=== PATIENT | female | born 1935 | race Caucasian/White ===

== ENCOUNTER 2017-12-15 12:48 | Inpatient (IN) ==
--- NOTE | 2017-12-15 13:41 | Internal Med History&Physical ---
Date of Encounter: 12/15/17 Time of Encounter: 13:37 Assessment and Plan (1) S/P colectomy Current visit: Yes Status: Acute Status post total colectomy proximately 30 days postop. Staple line surgical site appears healthy and well healed. Bowel sounds are positive. Ileostomy to the right lower quadrant with healthy stoma and liquid brown stool received. Abdomen is soft and nontender. Patient is been tolerating advancing diet, but has had a few episodes of nausea. We will continue with current plan of care. (2) CAD (coronary artery disease) Current visit: Yes Status: Chronic No acute issues. Patient denies any chest discomforts or palpitations during her hospital stay. We will continue on current medications. Qualifiers: Coronary Disease-Associated Artery/Lesion type: [place] artery [place] vs. transplanted heart: [place] heart Associated angina: angina presence unspecified Qualified Code(s): I25.10 - Atherosclerotic heart disease of [place] coronary artery without angina pectoris (3) HTN (hypertension) Current visit: Yes Status: Chronic Vital signs stable. We will continue with current medications. Qualifiers: Hypertension type: essential hypertension Qualified Code(s): I10 - Essential (primary) hypertension Internal Medicine - H&P: HPI Admitted From: Intrahospital Transfer Plans for Post Hospital Care: Home History of present illness: Ms. Ruelas is a 82 year old female with a history of atrial fibrillation, colon and rectal cancer, breast cancer, cardiomyopathy, CHF, CAD and hypertension, previous myocardial infarction in May 2014 with stent 1, and thyroid disease presented to the ED with chief complaint of abdominal pain and GI bleeding. Patient was found to have colon CA resulting in s/p subtotal abdominal colectomy with ileostomy, lysis adhesions for 2 hours, and repair of 3 enterotomies (unavoidable in the areas of radiation) with Dr. Praveen [place]. The patient tolerated procedure well. The pathology of the colon revealed adenocarcinoma, invading pericolic fat, node-Negative. During hospitalization, the patient had leukocytosis with elevated white blood count up to 13.8 and a low-grade fever with a temperature up to 100.2 Fahrenheit. Chest and abdomen x- ray was ordered to further evaluate. The report read stable small left pleural effusion with associated atelectasis or consolidation. Patient was then started on IV antibiotics for possible pneumonia. Patient currently denies any discomforts or dyspnea at this time. Denies any productive cough. Afebrile. Patient will continue on Levaquin for 6 more days. Pt c/o slight pain to her buttocks, which shows a shearing type skin breakdown, possible Stage 2 breakdown. State that she has been progressing with her diet and has had a few episodes of nausea but no vomiting. Patient states that she is ambulated with assistance at the Hospital but has felt very weak in her legs Past Med Surg Social Fam HX - Past Medical History Medical history: arthritis, atrial fibrillation, cancer, cardiomyopathy, CHF, coronary artery disease, GERD, hypertension, myocardial infarction, thyroid disease, other (Patient has had 3 types of cancer to her breast, colon and rectum) Psychiatric history: no psych history - Past Surgical History Surgical History: angioplasty/stent, appendectomy, breast surgery, cancer surgery, cholecystectomy, colostomy, hysterectomy - Social History Smoking Status: Former smoker Smokeless Tobacco Status: No Alcohol use: none Drug use: none - Family History Brother Family Member Ethnicity: Non- Living Status: Hx Family Cardiac Disorders: Yes (VT, AICD) Sister Adopted: No Family Member Ethnicity: Non- Living Status: Hx Family Cardiac Disorders: Yes (mother CHF) Hx Family Respiratory Disorders: No Hx Family Cancer: No Hx Family GI Disorders: No Hx Family Endocrine Disorder: No Hx Family Neuromuscular Disorders: No Hx Family Neurologic Disorders: No Hx Family HEENT Disorders: No Hx Family Autoimmune Disorders: No Mother Family Member Ethnicity: Non- Living Status: Hx Family Cardiac Disorders: Yes (CHF) Hx Family Endocrine Disorder: Yes (Thyroid disease) Father Family Member Ethnicity: Non- Living Status: Hx Family Cardiac Disorders: Yes (CAD, Strokes) Internal Medicine - H&P: Meds Cholecalciferol (Vitamin D3) [Vitamin D3] 1,000 unit PO DAILY 05/22/15 [History] Cinnamon Bark [Cinnamon] 1,000 mg PO DAILY 05/22/15 [History] Cyanocobalamin (Vitamin B-12) [Vitamin B-12] 100 mcg PO DAILY 05/22/15 [History] Flaxseed Oil 1,000 mg PO BID 05/22/15 [History] Garlic 2,000 mg PO DAILY 05/22/15 [History] Lisinopril [Zestril] 2.5 mg PO DAILY 05/22/15 [History] Levothyroxine [Synthroid] 25 mcg PO QAM 09/07/15 [History] Calcium Carbonate [Calcium] 1,200 mg PO BID 06/23/16 [History] Vitamin A Palmitate [Vitamin A] 10,000 unit PO DAILY 06/23/16 [History] Furosemide [Lasix] 20 mg PO BID #60 tablet 08/08/16 [Rx] Simvastatin [Zocor] 20 mg PO HS #90 tablet 09/21/16 [Rx] Guaifenesin [Mucinex] 600 mg PO BID PRN 12/06/16 [History] Clopidogrel Bisulfate [Plavix] 75 mg PO DAILY #30 tablet 03/16/17 [Rx] Digoxin [Lanoxin] 0.125 mg PO DAILY #30 tablet 03/16/17 [Rx] Omeprazole [PriLOSEC] 40 mg PO BIDAC #30 capsule. 10/30/17 [Rx] Metoprolol Succinate [Toprol Xl] 100 mg PO DAILY 11/30/17 [History] Docusate [Colace] 100 mg PO BID PRN #30 capsule 12/13/17 [Rx] Ibuprofen [Motrin] 600 mg PO Q8HR PRN #30 tab 12/13/17 [Rx] OxyCODONE/APAP 10/325 [Percocet 10/325 MG] 1 each PO Q6HR PRN 6 Days #24 tablet 12/13/17 [Rx] levoFLOXacin [Levaquin] 500 mg PO DAILY 6 Days #6 tablet 12/13/17 [Rx] 3 Allergy/AdvReac Type Severity Reaction Status Date / Time diazepam [From Valium] AdvReac Muscle Pain Verified 11/30/17 13:50 All Systems PM: A 10-system review of systems was performed and is negative for pertinent findings except as documented above in the HPI. - Constitutional Constitutional: as per HPI, no chills, no fever(s), no night sweats - EENT Eyes: no change in vision, no discharge, no pain, no photophobia Ears: no ear discharge, no ear pain, no tinnitus Nose, mouth and throat: no dysphagia, no nasal discharge, no neck pain, no sore throat - Cardiovascular Cardiovascular ROS IM: no chest pain, no diaphoresis, no dyspnea, no lightheadedness, no palpitations, no syncope - Respiratory Respiratory: as per HPI, no cough, no dyspnea, no wheezing, no excessive phlegm production - Gastrointestinal Gastrointestinal: as per HPI, no abdominal pain, no diarrhea, no hematemesis, no hematochezia, no melena, no nausea, no vomiting - Genitourinary Genitourinary: no change in urinary stream, no dysuria, no flank pain, no hematuria - Musculoskeletal Musculoskeletal ROS IM: no numbness, no tingling - Integumentary Integumentary IM: no rash, no unusual bruising - Neurological Neurological ROS: no confusion, no convulsions, no focal weakness, no numbness, no tingling, no tremor(s) - Hematologic/Lymphatic Hematologic/Lymphatic: no easy bruising - Head Head exam: Present: atraumatic, normocephalic - Eye Eye exam: Present: PERRL, conjuntiva pink, sclera anicteric Pupils: Present: PERRL - Neck Neck exam general surgery: Present: supple, trachea midline. Absent: lymphadenopathy - Respiratory Respiratory exam: Present: CTAB. Absent: accessory muscle use, rales, rhonchi, wheezes Additional comments: Lungs are clear throughout overfills but diminished at the bases. No productive cough noted. Respiratory effort appears relaxed - Cardiovascular Cardiovascular exam: Present: RRR, +S1, +S2. Absent: diastolic murmur, gallop, rubs, systolic murmur - GI/Abdominal GI/Abdominal exam: Present: normal bowel sounds, soft, no peritoneal signs. Absent: distended, tenderness Additional comments: Right lower quadrant ileostomy with liquid brown stool. Stoma appears healthy. Abdomen is nontender. Patient has 2 surgical stable lines to the left lower quadrant and midline. Both incisions appear to be well healed. - Extremities Exam Extremities exam: Present: warm, radial pulses palpable and symmetrical. Absent : calf tenderness, cyanotic, pedal edema - Neurological Exam Neurological exam: Present: CN II-XII intact, oriented X3, no focal deficits. Absent: pronater drift, facial droop, speech deficit - Skin Skin exam: Present: dry, intact
[2017-12-15] MEDS ORDERED: Ibuprofen 600 MG TABLET PO PRN (14:24)
[2017-12-15] MEDS ORDERED: *HR* OxyCODONE/APAP 10/325 TABLET PO PRN (14:24)
[2017-12-15] MEDS ORDERED: Furosemide 20 MG TABLET PO SCH (21:00)
[2017-12-16 05:56] LABS: Basophils # 0.1 K/mcL (0.0-0.2); Eosinophils # 0.2 K/mcL (0.0-0.6); Eosinophils % 2.2 %; Immature Granulocytes % 1.5 % (0-4); Lymphocytes # 0.7 K/mcL (0.6-4.6); Lymphocytes % 8.9 %; Mean Corpuscular HGB Conc 31.3 g/dL (31.6-35.5); Mean Corpuscular Hemoglobin 25.4 pg (28.0-33.3); Mean Corpuscular Volume 81.4 fL (83.0-100.0); Mean Platelet Volume 10.4 fL (9.4-12.4); Monocytes # 0.9 K/mcL (0.0-1.3); Monocytes % 10.7 %; Neutrophils # 6.1 K/mcL (1.6-8.9); Platelet Count 547 K/mcL (140-400); Red Blood Count 3.93 M/mcL (3.82-4.97); Red Cell Distribution Width 17.6 % (11.5-14.5); Segmented Neutrophils % 75.7 %
[2017-12-16 05:57] LABS: INR 1.2; Prothrombin Time 13.4 Seconds (9.4-12.1)
[2017-12-16 06:00] LABS: Activated Partial Thrombo Time 26.4 Seconds (26.0-36.0)
[2017-12-16 06:11] LABS: BUN/Creatinine Ratio 22 (6-26); Blood Urea Nitrogen 15 mg/dL (8-23); Carbon Dioxide 29 mEq/L (23-29); Chloride 100 mEq/L (98-107); Glucose 96 mg/dL (70-105); Osmolality,Calculated 283 (280-300); Potassium 3.9 mEq/L (3.5-5.1); Sodium 136 mEq/L (136-145); eGFR For African Americans > 60 (> 60); eGFR For Non-African Americans > 60 (> 60)
[2017-12-16] MEDS: Furosemide 20 MG TABLET PO SCH ×2 (06:29→17:00)
[2017-12-16] MEDS: levoFLOXacin 500 MG TABLET PO SCH (08:18)
[2017-12-16] MEDS: Levothyroxine 25 MCG TABLET PO SCH (08:19)
[2017-12-16] MEDS: Cholecalciferol (D-3) 1,000 UNIT TABLET PO SCH (08:19)
[2017-12-16] MEDS: *HR* Digoxin 0.125 MG TABLET PO SCH (08:19)
[2017-12-16] MEDS: Metoprolol XL (24 HR) Succ 50 MG TAB.ER.24H PO SCH (08:19)
[2017-12-16] MEDS: (Vitamin A Palmitate [Vitamin A] 10,000 UNIT) PO SCH (08:21)
[2017-12-16] MEDS: GARLIC 2000 MG PO SCH (08:21)
[2017-12-16] MEDS: FLAXSEED OIL 1000 MG PO SCH ×2 (08:21→20:38)
[2017-12-16] MEDS: (Cinnamon Bark [Cinnamon] 1,000 MG) PO SCH (08:21)
[2017-12-16] MEDS ORDERED: Patient Taking Own Medication 1 EACH PO SCH (09:00)
--- NOTE | 2017-12-16 11:09 | Internal Med Progress Note ---
Date of Encounter: 12/16/17 Time of Encounter: 11:07 - Assessment and plan (1) Rectal cancer Current Visit: No Status: Acute Assessment and plan: s/p resection and colostomy His wound is healing very well . follows with Oncology stable destinee needs removed (2) Hypertension Current Visit: No Status: Acute Assessment and plan: stable continue present medications Qualifiers: Qualified Code(s): I10 - Essential (primary) hypertension - Time Spent With Patient 25 - 35 minutes - Subjective Interval history: no new complains she seems to be doing fine no fever or chill no nausea vomiting or apin in abdomen . She is getting up and participating in rehab - Constitutional Vitals: Temp Pulse Resp BP Pulse Ox 98.3 F 89 16 110/63 96 12/16/17 07:08 12/16/17 07:08 12/16/17 07:08 12/16/17 07:08 12/16/17 07:08 General appearance: Present: A&O X 3, pleasant. Absent: no acute distress - Head Head exam: Present: atraumatic - Eye Eye exam: Present: EOMI, PERRL - Neck Neck exam general surgery: Present: supple. Absent: nuchal rigidity - Respiratory Respiratory exam: Present: CTAB. Absent: chest wall tenderness, decreased breath sounds, respiratory distress, rhonchi, stridor, wheezes, tachypnea - Cardiovascular Cardiovascular exam: Present: RRR, +S1, +S3. Absent: irregular rhythm, JVD - GI/Abdominal GI/Abdominal exam: Present: normal bowel sounds, soft. Absent: distended, firm , guarding, pulsatile mass, rebound, rigid, tenderness Additional comments: patent colostomy. Surgical scar is clean and well healed still has destinee which needs removed - Extremities Exam Extremities exam: Absent: pedal edema, tenderness - Neurological Exam Neurological exam: Present: CN II-XII intact, oriented X3, no focal deficits. Absent: facial droop, speech deficit Internal Medicine: Result - Labs CBC & Chem 7: 12/16/17 05:45 12/16/17 05:45 Labs: Short CBC 12/16/17 Range/Units 05:45 WBC 8.1 (4.3-11.1) K/mcL Hgb 10.0 L (11.5-15.4) g/dL Hct 32.0 L (35.3-44.9) % Plt Count 547 H (140-400) K/mcL Neutrophils # 6.1 (1.6-8.9) K/mcL BMP 12/16/17 05:45 Sodium 136 Potassium 3.9 Chloride 100 Carbon Dioxide 29 BUN 15 Creatinine 0.67 Glucose 96 Calcium 9.0 - ABG Interpretation ABG results: PT/INR, D-dimer PT 13.4 Seconds (9.4-12.1) H 12/16/17 05:45 Consult Discharge Plan - Plan Referrals: Chiquis Suárez MD [Primary Care Provider] -
[2017-12-17] MEDS: Furosemide 20 MG TABLET PO SCH ×2 (05:15→17:35)
--- NOTE | 2017-12-17 08:32 | Internal Med Progress Note ---
Date of Encounter: 12/17/17 Time of Encounter: 08:30 - Assessment and plan (1) Rectal cancer Current Visit: No Status: Acute Assessment and plan: stable s/p surgery wound has healed well destinee need removed today (2) Hypertension Current Visit: No Status: Acute Assessment and plan: stable continue present meds Qualifiers: Qualified Code(s): I10 - Essential (primary) hypertension - Time Spent With Patient 25 - 35 minutes - Subjective Interval history: Overall feels fine destinee to be removed today no pain no breathing issues eating well - Constitutional Vitals: Temp Pulse Resp BP Pulse Ox 98.3 F 54 18 118/51 95 12/17/17 07:43 12/17/17 07:43 12/17/17 07:43 12/17/17 07:43 12/17/17 07:43 General appearance: Present: A&O X 3, pleasant. Absent: no acute distress - Head Head exam: Present: atraumatic - Eye Eye exam: Present: EOMI, PERRL, sclera anicteric. Absent: scleral icterus, conjuntiva pink - Neck Neck exam general surgery: Present: supple. Absent: tenderness, nuchal rigidity - Respiratory Respiratory exam: Present: CTAB. Absent: chest wall tenderness, respiratory distress, rhonchi, stridor, wheezes, tachypnea - Cardiovascular Cardiovascular exam: Present: RRR, +S1, +S2. Absent: irregular rhythm, JVD - GI/Abdominal GI/Abdominal exam: Present: normal bowel sounds, soft. Absent: distended, firm , guarding, hernia, rigid Additional comments: patent colostomy . Soft destinee needs removed wounds healed well - [place] Incision: Present: clean and dry, intact - Neurological Exam Neurological exam: Present: alert, CN II-XII intact, no focal deficits, strengths equal and symetr throughout. Absent: facial droop, speech deficit Internal Medicine: Result - Labs CBC & Chem 7: 12/16/17 05:45 12/16/17 05:45 - ABG Interpretation ABG results: PT/INR, D-dimer PT 13.4 Seconds (9.4-12.1) H 12/16/17 05:45 - VTE Documentation of Mechanical Device: Graduated compression elastic hosiery Consult Discharge Plan - Plan Referrals: Chiquis Suárez MD [Primary Care Provider] -
[2017-12-17] MEDS: levoFLOXacin 500 MG TABLET PO SCH (09:02)
[2017-12-17] MEDS: Metoprolol XL (24 HR) Succ 50 MG TAB.ER.24H PO SCH (09:03)
[2017-12-17] MEDS: *HR* Digoxin 0.125 MG TABLET PO SCH (09:03)
[2017-12-17] MEDS: Levothyroxine 25 MCG TABLET PO SCH (09:03)
[2017-12-17] MEDS: Cholecalciferol (D-3) 1,000 UNIT TABLET PO SCH (09:03)
[2017-12-17] MEDS: FLAXSEED OIL 1000 MG PO SCH ×2 (09:03→21:25)
[2017-12-17] MEDS: (Vitamin A Palmitate [Vitamin A] 10,000 UNIT) PO SCH (09:04)
[2017-12-17] MEDS: GARLIC 2000 MG PO SCH (09:04)
[2017-12-17] MEDS: (Cinnamon Bark [Cinnamon] 1,000 MG) PO SCH (09:04)
[2017-12-18] MEDS: Furosemide 20 MG TABLET PO SCH ×2 (05:33→18:31)
[2017-12-18 06:39] LABS: Basophils % 0.4 %; Eosinophils # 0.2 K/mcL (0.0-0.6); Hematocrit 33.9 % (35.3-44.9); Hemoglobin 10.6 g/dL (11.5-15.4); Immature Granulocytes % 1.2 % (0-4); Lymphocytes # 0.8 K/mcL (0.6-4.6); Lymphocytes % 10.6 %; Mean Corpuscular HGB Conc 31.3 g/dL (31.6-35.5); Mean Corpuscular Hemoglobin 25.4 pg (28.0-33.3); Mean Corpuscular Volume 81.1 fL (83.0-100.0); Mean Platelet Volume 9.9 fL (9.4-12.4); Monocytes # 0.8 K/mcL (0.0-1.3); Monocytes % 10.5 %; Neutrophils # 5.5 K/mcL (1.6-8.9); Platelet Count 510 K/mcL (140-400); Red Blood Count 4.18 M/mcL (3.82-4.97); Red Cell Distribution Width 17.7 % (11.5-14.5); Segmented Neutrophils % 74.3 %
[2017-12-18 06:57] LABS: BUN/Creatinine Ratio 23 (6-26); Blood Urea Nitrogen 17 mg/dL (8-23); Calcium 9.1 mg/dL (8.6-10.3); Carbon Dioxide 28 mEq/L (23-29); Chloride 101 mEq/L (98-107); Glucose 101 mg/dL (70-105); Osmolality,Calculated 286 (280-300); Potassium 3.8 mEq/L (3.5-5.1); Sodium 137 mEq/L (136-145); eGFR For African Americans > 60 (> 60); eGFR For Non-African Americans > 60 (> 60)
[2017-12-18] MEDS: levoFLOXacin 500 MG TABLET PO SCH (09:54)
[2017-12-18] MEDS: Cholecalciferol (D-3) 1,000 UNIT TABLET PO SCH (09:54)
[2017-12-18] MEDS: GARLIC 2000 MG PO SCH (09:55)
[2017-12-18] MEDS: FLAXSEED OIL 1000 MG PO SCH ×2 (09:55→20:46)
[2017-12-18] MEDS: (Cinnamon Bark [Cinnamon] 1,000 MG) PO SCH (09:55)
[2017-12-18] MEDS: Levothyroxine 25 MCG TABLET PO SCH (09:55)
[2017-12-18] MEDS: *HR* Digoxin 0.125 MG TABLET PO SCH (09:55)
[2017-12-18] MEDS: (Vitamin A Palmitate [Vitamin A] 10,000 UNIT) PO SCH (09:55)
[2017-12-18] MEDS: Metoprolol XL (24 HR) Succ 50 MG TAB.ER.24H PO SCH (09:55)
--- NOTE | 2017-12-18 12:39 | Internal Med Progress Note ---
Date of Encounter: 12/18/17 Time of Encounter: 12:36 - Assessment and plan (1) S/P colectomy Current Visit: Yes Status: Acute Assessment and plan: No acute issues. Surgical incision appears well-healed. Right lower quadrant ileostomy stoma site appears healthy with liquid brown stool received. She did complain of slight dizziness during therapy. We will have nurses obtain orthostatic vital signs. We will review current medications. We will continue with current therapy (2) CAD (coronary artery disease) Current Visit: Yes Status: Chronic Assessment and plan: No acute issues. Patient denies any chest discomforts or palpitations, although she did have an episode of dizziness today. We will obtain orthostatic vitals. We will continue with current medications. Labs are reviewed with no acute issues. Qualifiers: Coronary Disease-Associated Artery/Lesion type: [place] artery [place] vs. transplanted heart: [place] heart Associated angina: angina presence unspecified Qualified Code(s): I25.10 - Atherosclerotic heart disease of [place] coronary artery without angina pectoris (3) HTN (hypertension) Current Visit: Yes Status: Chronic Assessment and plan: Vital signs stable. We will continue with current medications. Qualifiers: Hypertension type: essential hypertension Qualified Code(s): I10 - Essential (primary) hypertension - Subjective Interval history: Patient appears relaxed denies any discomforts or shortness of breath. Patient is states she became slightly dizzy during physical therapy. Denies any current or history of dizziness or palpitations. - Constitutional Vitals: Temp Pulse Resp BP Pulse Ox 98.6 F 94 18 100/56 95 12/17/17 19:31 12/17/17 19:31 12/17/17 19:31 12/17/17 19:31 12/17/17 19:31 General appearance: Present: A&O X 3, pleasant. Absent: no acute distress - Head Head exam: Present: atraumatic, normocephalic - Eye Eye exam: Present: PERRL, conjuntiva pink, sclera anicteric Pupils: Present: PERRL - Neck Neck exam general surgery: Present: supple, trachea midline. Absent: lymphadenopathy - Respiratory Respiratory exam: Present: CTAB. Absent: accessory muscle use, rales, rhonchi, wheezes - Cardiovascular Cardiovascular exam: Present: RRR, +S1, +S2. Absent: diastolic murmur, gallop, rubs, systolic murmur - GI/Abdominal GI/Abdominal exam: Present: normal bowel sounds, soft, no peritoneal signs. Absent: distended, tenderness Additional comments: Midline surgical incision appears dry and intact, and well-healed. Right lower quadrant ileostomy stoma appears healthy with moderate amount of liquid brown stool received. - Extremities Exam Extremities exam: Present: warm, radial pulses palpable and symmetrical. Absent : calf tenderness, cyanotic, pedal edema - Neurological Exam Neurological exam: Present: CN II-XII intact, oriented X3, no focal deficits. Absent: pronater drift, facial droop, speech deficit - Skin Skin exam: Present: dry, intact Internal Medicine: Result - Labs CBC & Chem 7: 12/18/17 06:30 12/18/17 06:30 Labs: Short CBC 12/18/17 Range/Units 06:30 WBC 7.4 (4.3-11.1) K/mcL Hgb 10.6 L (11.5-15.4) g/dL Hct 33.9 L (35.3-44.9) % Plt Count 510 H (140-400) K/mcL Neutrophils # 5.5 (1.6-8.9) K/mcL BMP 12/18/17 06:30 Sodium 137 Potassium 3.8 Chloride 101 Carbon Dioxide 28 BUN 17 Creatinine 0.75 Glucose 101 Calcium 9.1 - ABG Interpretation ABG results: PT/INR, D-dimer PT 13.4 Seconds (9.4-12.1) H 12/16/17 05:45 - VTE Documentation of Mechanical Device: Graduated compression elastic hosiery Consult Discharge Plan - Plan Referrals: Chiquis Suárez MD [Primary Care Provider] -
[2017-12-18] MEDS: *HR* Heparin 5,000 UNIT/ML VIAL SQ SCH (20:44)
[2017-12-19] MEDS: *HR* Heparin 5,000 UNIT/ML VIAL SQ SCH ×3 (05:07→20:39)
[2017-12-19] MEDS: Furosemide 20 MG TABLET PO SCH (05:08)
[2017-12-19] MEDS: Cholecalciferol (D-3) 1,000 UNIT TABLET PO SCH (09:50)
[2017-12-19] MEDS: *HR* Digoxin 0.125 MG TABLET PO SCH (09:50)
[2017-12-19] MEDS: Levothyroxine 25 MCG TABLET PO SCH (09:50)
[2017-12-19] MEDS: Metoprolol XL (24 HR) Succ 50 MG TAB.ER.24H PO SCH (09:50)
[2017-12-19] MEDS: levoFLOXacin 500 MG TABLET PO SCH (09:51)
[2017-12-19] MEDS: (Vitamin A Palmitate [Vitamin A] 10,000 UNIT) PO SCH (09:59)
[2017-12-19] MEDS: FLAXSEED OIL 1000 MG PO SCH ×2 (09:59→20:41)
[2017-12-19] MEDS: (Cinnamon Bark [Cinnamon] 1,000 MG) PO SCH (09:59)
[2017-12-19] MEDS: GARLIC 2000 MG PO SCH (09:59)
--- NOTE | 2017-12-19 12:48 | Internal Med Progress Note ---
Date of Encounter: 12/19/17 Time of Encounter: 12:45 - Assessment and plan (1) S/P colectomy Current Visit: Yes Status: Acute Assessment and plan: No acute issues. Surgical incision appears well-healed. Right lower quadrant ileostomy stoma site appears healthy with liquid brown stool received. She did complain of slight dizziness during therapy. We will have nurses obtain orthostatic vital signs. Will discuss with Dr. Lucio after medication review. We will continue with current therapy (2) CAD (coronary artery disease) Current Visit: Yes Status: Chronic Assessment and plan: No acute issues. Patient denies any chest discomforts or palpitations, although she did have an episode of dizziness today. We will obtain orthostatic vitals. We will continue with current medications. Labs are reviewed with no acute issues. Qualifiers: Coronary Disease-Associated Artery/Lesion type: [place] artery [place] vs. transplanted heart: [place] heart Associated angina: angina presence unspecified Qualified Code(s): I25.10 - Atherosclerotic heart disease of [place] coronary artery without angina pectoris (3) HTN (hypertension) Current Visit: Yes Status: Chronic Assessment and plan: Vital signs stable, although SBP 90-110. We will continue with current medications. Qualifiers: Hypertension type: essential hypertension Qualified Code(s): I10 - Essential (primary) hypertension - Time Spent With Patient less than 15 minutes - Subjective Interval history: Patient appears relaxed denies any discomforts or shortness of breath. Patient is states she continues to become slightly dizzy during physical therapy and occasionally position changes. Denies any current or history of dizziness or palpitations. - Constitutional Vitals: Temp Pulse Resp BP Pulse Ox 98.2 F 94 16 99/63 96 12/19/17 07:00 12/19/17 07:00 12/19/17 07:00 12/19/17 07:00 12/18/17 19:15 General appearance: Present: A&O X 3, pleasant. Absent: no acute distress - Head Head exam: Present: atraumatic, normocephalic - Eye Eye exam: Present: PERRL, conjuntiva pink, sclera anicteric Pupils: Present: PERRL - Neck Neck exam general surgery: Present: supple, trachea midline. Absent: lymphadenopathy - Respiratory Respiratory exam: Present: CTAB. Absent: accessory muscle use, rales, rhonchi, wheezes - Cardiovascular Cardiovascular exam: Present: RRR, +S1, +S2. Absent: diastolic murmur, gallop, rubs, systolic murmur - GI/Abdominal GI/Abdominal exam: Present: normal bowel sounds, soft, no peritoneal signs. Absent: distended, tenderness Additional comments: Midline surgical incision appears dry and intact, healing well. RLQ ileostomy with stoma that appears healthy and liquid brown stool received. No tenderness noted. - Extremities Exam Extremities exam: Present: warm, radial pulses palpable and symmetrical. Absent : calf tenderness, cyanotic, pedal edema - Neurological Exam Neurological exam: Present: CN II-XII intact, oriented X3, no focal deficits. Absent: pronater drift, facial droop, speech deficit - Skin Skin exam: Present: dry, intact Internal Medicine: Result - Labs CBC & Chem 7: 12/18/17 06:30 12/18/17 06:30 - ABG Interpretation ABG results: PT/INR, D-dimer PT 13.4 Seconds (9.4-12.1) H 12/16/17 05:45 - VTE Documentation of Mechanical Device: Graduated compression elastic hosiery Consult Discharge Plan - Plan Referrals: Chiquis Suárez MD [Primary Care Provider] -
[2017-12-19] MEDS ORDERED: Furosemide 20 MG TABLET PO PRN (12:54)
[2017-12-19] MEDS: Nystatin POWDER 30 GM BOTTLE TP SCH (20:40)
[2017-12-20] MEDS: *HR* Heparin 5,000 UNIT/ML VIAL SQ SCH ×3 (05:23→21:18)
[2017-12-20] MEDS: levoFLOXacin 500 MG TABLET PO SCH (10:34)
[2017-12-20] MEDS: Levothyroxine 25 MCG TABLET PO SCH (10:34)
[2017-12-20] MEDS: Metoprolol XL (24 HR) Succ 50 MG TAB.ER.24H PO SCH (10:34)
[2017-12-20] MEDS: Cholecalciferol (D-3) 1,000 UNIT TABLET PO SCH (10:34)
[2017-12-20] MEDS: *HR* Digoxin 0.125 MG TABLET PO SCH (10:34)
[2017-12-20] MEDS: FLAXSEED OIL 1000 MG PO SCH ×2 (10:36→21:12)
[2017-12-20] MEDS: (Vitamin A Palmitate [Vitamin A] 10,000 UNIT) PO SCH (10:36)
[2017-12-20] MEDS: (Cinnamon Bark [Cinnamon] 1,000 MG) PO SCH (10:36)
[2017-12-20] MEDS: Nystatin POWDER 30 GM BOTTLE TP SCH ×2 (10:36→21:10)
[2017-12-20] MEDS: GARLIC 2000 MG PO SCH (10:36)
--- NOTE | 2017-12-20 12:40 | Internal Med Progress Note ---
Date of Encounter: 12/20/17 Time of Encounter: 12:37 - Assessment and plan (1) S/P colectomy Current Visit: Yes Status: Acute Assessment and plan: No acute issues. Surgical incision appears well-healed. Right lower quadrant ileostomy stoma site appears healthy with liquid brown stool received. Patient has been without c/o pain. We will continue with current therapy (2) CAD (coronary artery disease) Current Visit: Yes Status: Chronic Assessment and plan: No acute issues. Lasix dosing was decreased yesterday and today patient denies any current issue with dizziness. Patient denies any chest discomforts or palpitations. We will continue with current medications. Pt states a remote Hx of outpatient f/u with cardiology for evaluation of PPM that was planned prior to her present surgical admission. Recommend that patient reschedule f/u appt at later date due to present recovery from surgery. Pt has been asymptomatic with no c/o chest discomforts or syncopal symptoms. Qualifiers: Coronary Disease-Associated Artery/Lesion type: [place] artery [place] vs. transplanted heart: [place] heart Associated angina: angina presence unspecified Qualified Code(s): I25.10 - Atherosclerotic heart disease of [place] coronary artery without angina pectoris (3) HTN (hypertension) Current Visit: Yes Status: Chronic Assessment and plan: Vital signs stable, although SBP 90-110. We will continue with current medications. Qualifiers: Hypertension type: essential hypertension Qualified Code(s): I10 - Essential (primary) hypertension - Subjective Interval history: Patient appears relaxed denies any discomforts or shortness of breath. Patient is states that her c/o dizziness has resolved. Pt also states that she was previously scheduled for f/u with Dr. Vidal, Cardiology for a PPM prior to her present surgical issues. Pt denies any chest discomforts, palpitations or syncopal symptoms. States that the dizziness she experienced was related to position changes and during fatigue during PT/OT. - Constitutional Vitals: Temp Pulse Resp BP Pulse Ox 98.2 F 97 18 101/57 93 12/20/17 07:14 12/20/17 07:14 12/20/17 07:14 12/20/17 07:14 12/20/17 07:14 General appearance: Present: A&O X 3, pleasant. Absent: no acute distress - Head Head exam: Present: atraumatic, normocephalic - Eye Eye exam: Present: PERRL, conjuntiva pink, sclera anicteric Pupils: Present: PERRL - Neck Neck exam general surgery: Present: supple, trachea midline. Absent: lymphadenopathy - Respiratory Respiratory exam: Present: CTAB. Absent: accessory muscle use, rales, rhonchi, wheezes - Cardiovascular Cardiovascular exam: Present: RRR, +S1, +S2. Absent: diastolic murmur, gallop, rubs, systolic murmur - GI/Abdominal GI/Abdominal exam: Present: normal bowel sounds, soft, no peritoneal signs. Absent: distended, tenderness Additional comments: Mid-line abdominal surgical wound appears intact and healthy. RLQ ileostomy stoma appears healthy with liquid brown stool. - Extremities Exam Extremities exam: Present: warm, radial pulses palpable and symmetrical. Absent : calf tenderness, cyanotic, pedal edema - Neurological Exam Neurological exam: Present: CN II-XII intact, oriented X3, no focal deficits. Absent: pronater drift, facial droop, speech deficit - Skin Skin exam: Present: dry, intact Internal Medicine: Result - Labs CBC & Chem 7: 12/18/17 06:30 12/18/17 06:30 - ABG Interpretation ABG results: PT/INR, D-dimer PT 13.4 Seconds (9.4-12.1) H 12/16/17 05:45 - VTE Documentation of Mechanical Device: Graduated compression elastic hosiery Consult Discharge Plan - Plan Referrals: Chiquis Suárez MD [Primary Care Provider] -
[2017-12-21] MEDS: *HR* Heparin 5,000 UNIT/ML VIAL SQ SCH ×3 (06:37→21:31)
[2017-12-21] MEDS: Levothyroxine 25 MCG TABLET PO SCH (08:39)
[2017-12-21] MEDS: Cholecalciferol (D-3) 1,000 UNIT TABLET PO SCH (08:39)
[2017-12-21] MEDS: *HR* Digoxin 0.125 MG TABLET PO SCH (08:39)
[2017-12-21] MEDS: Metoprolol XL (24 HR) Succ 50 MG TAB.ER.24H PO SCH (08:39)
[2017-12-21] MEDS: levoFLOXacin 500 MG TABLET PO SCH (08:39)
[2017-12-21] MEDS: Nystatin POWDER 30 GM BOTTLE TP SCH ×2 (08:40→21:31)
[2017-12-21] MEDS: (Vitamin A Palmitate [Vitamin A] 10,000 UNIT) PO SCH (08:40)
[2017-12-21] MEDS: GARLIC 2000 MG PO SCH (08:40)
[2017-12-21] MEDS: (Cinnamon Bark [Cinnamon] 1,000 MG) PO SCH (08:40)
[2017-12-21] MEDS: FLAXSEED OIL 1000 MG PO SCH ×2 (08:40→21:31)
--- NOTE | 2017-12-21 13:29 | Internal Med Progress Note ---
Date of Encounter: 12/21/17 Time of Encounter: 13:26 - Assessment and plan (1) CAD (coronary artery disease) Current Visit: Yes Status: Chronic Assessment and plan: Continue current medications. Qualifiers: Coronary Disease-Associated Artery/Lesion type: [place] artery [place] vs. transplanted heart: [place] heart Associated angina: angina presence unspecified Qualified Code(s): I25.10 - Atherosclerotic heart disease of [place] coronary artery without angina pectoris (2) HTN (hypertension) Current Visit: Yes Status: Chronic Assessment and plan: Controlled with current medication. Monitor blood pressure Qualifiers: Hypertension type: essential hypertension Qualified Code(s): I10 - Essential (primary) hypertension (3) S/P colectomy Current Visit: Yes Status: Acute Assessment and plan: Normal. Follow up with surgeon. (4) General weakness Current Visit: Yes Status: Acute Assessment and plan: Continue PT\OT. Improving - Time Spent With Patient less than 15 minutes - Subjective Interval history: Patient scheduled for discharge tomorrow. States increased muscle soreness today due to doing more physical therapy. Denies any area of pain. Patient has colostomy. Which is producing normal bowel movements for site. Will be discharging with home health physical therapy and RN. - Constitutional Vitals: Temp Pulse Resp BP Pulse Ox 97.9 F 99 16 113/63 95 12/21/17 08:25 12/21/17 08:25 12/21/17 08:25 12/21/17 08:25 12/21/17 08:25 General appearance: Present: A&O X 3, pleasant. Absent: no acute distress - Head Head exam: Present: atraumatic, normocephalic - Eye Eye exam: Present: PERRL, conjuntiva pink, sclera anicteric Pupils: Present: PERRL - Neck Neck exam general surgery: Present: supple, trachea midline. Absent: lymphadenopathy - Respiratory Respiratory exam: Present: CTAB. Absent: accessory muscle use, rales, rhonchi, wheezes - Cardiovascular Cardiovascular exam: Present: RRR, +S1, +S2. Absent: diastolic murmur, gallop, rubs, systolic murmur - GI/Abdominal GI/Abdominal exam: Present: normal bowel sounds, soft, no peritoneal signs. Absent: distended, tenderness - Extremities Exam Extremities exam: Present: warm, radial pulses palpable and symmetrical. Absent : calf tenderness, cyanotic, pedal edema - Neurological Exam Neurological exam: Present: CN II-XII intact, oriented X3, no focal deficits. Absent: pronater drift, facial droop, speech deficit - Skin Skin exam: Present: dry, intact Additional comments: Healing scars on Abdomen from old surgery. Colostomy. Stoma normal and pink Internal Medicine: Result - Labs CBC & Chem 7: 12/18/17 06:30 12/18/17 06:30 - ABG Interpretation ABG results: PT/INR, D-dimer PT 13.4 Seconds (9.4-12.1) H 12/16/17 05:45 - VTE Documentation of Mechanical Device: Graduated compression elastic hosiery Consult Discharge Plan - Plan Referrals: Chiquis Suárez MD [Primary Care Provider] -
[2017-12-21] MEDS ORDERED: Acetaminophen 325 MG TABLET PO PRN (21:09)
[2017-12-22] MEDS: *HR* Heparin 5,000 UNIT/ML VIAL SQ SCH (06:38)
[2017-12-22 07:16] VITALS: BP 108/71
[2017-12-22] MEDS: levoFLOXacin 500 MG TABLET PO SCH (09:20)
[2017-12-22] MEDS: Metoprolol XL (24 HR) Succ 50 MG TAB.ER.24H PO SCH (09:21)
[2017-12-22] MEDS: *HR* Digoxin 0.125 MG TABLET PO SCH (09:21)
[2017-12-22] MEDS: Cholecalciferol (D-3) 1,000 UNIT TABLET PO SCH (09:21)
[2017-12-22] MEDS: Levothyroxine 25 MCG TABLET PO SCH (09:21)
[2017-12-22] MEDS: GARLIC 2000 MG PO SCH (09:22)
[2017-12-22] MEDS: (Vitamin A Palmitate [Vitamin A] 10,000 UNIT) PO SCH (09:22)
[2017-12-22] MEDS: FLAXSEED OIL 1000 MG PO SCH (09:22)
[2017-12-22] MEDS: (Cinnamon Bark [Cinnamon] 1,000 MG) PO SCH (09:22)
[2017-12-22] MEDS: Nystatin POWDER 30 GM BOTTLE TP SCH (09:23)
--- NOTE | 2017-12-22 11:03 | Physician Discharge Referral ---
Home Health/Hosp Referral Info Transfer to: Home Health - Diagnosis (1) CAD (coronary artery disease) Priority: Secondary Status: Chronic (2) HTN (hypertension) Priority: Secondary Status: Chronic (3) S/P colectomy Priority: Primary Status: Acute (4) General weakness Priority: Secondary Status: Acute - Respiratory Orders Smoking Cessation: Smoking cessation has been advised. For more information, call the [place] Tobacco Quit Line at 7-094-ZCBY-NOW. - Diet/Nutrition Diet/Nutrition Orders: Regular - Activity Activity Orders: Walker - Services Needed Following services are medically necessary services: Nursing, Physical Therapy - Transfer Medications Home Medications: Cholecalciferol (Vitamin D3) [Vitamin D3] 1,000 unit PO DAILY 05/22/15 [History] Cinnamon Bark [Cinnamon] 1,000 mg PO DAILY 05/22/15 [History] Cyanocobalamin (Vitamin B-12) [Vitamin B-12] 100 mcg PO DAILY 05/22/15 [History] Flaxseed Oil 1,000 mg PO BID 05/22/15 [History] Garlic 2,000 mg PO DAILY 05/22/15 [History] Lisinopril [Zestril] 2.5 mg PO DAILY 05/22/15 [History] Levothyroxine [Synthroid] 25 mcg PO QAM 09/07/15 [History] Calcium Carbonate [Calcium] 1,200 mg PO BID 06/23/16 [History] Vitamin A Palmitate [Vitamin A] 10,000 unit PO DAILY 06/23/16 [History] Furosemide [Lasix] 20 mg PO BID #60 tablet 08/08/16 [Rx] Simvastatin [Zocor] 20 mg PO HS #90 tablet 09/21/16 [Rx] Guaifenesin [Mucinex] 600 mg PO BID PRN 12/06/16 [History] Clopidogrel Bisulfate [Plavix] 75 mg PO DAILY #30 tablet 03/16/17 [Rx] Digoxin [Lanoxin] 0.125 mg PO DAILY #30 tablet 03/16/17 [Rx] Omeprazole [PriLOSEC] 40 mg PO BIDAC #30 capsule. 10/30/17 [Rx] Metoprolol Succinate [Toprol Xl] 100 mg PO DAILY 11/30/17 [History] Docusate [Colace] 100 mg PO BID PRN #30 capsule 12/13/17 [Rx] Ibuprofen [Motrin] 600 mg PO Q8HR PRN #30 tab 12/13/17 [Rx] OxyCODONE/APAP 10/325 [Percocet 10/325 MG] 1 each PO Q6HR PRN 6 Days #24 tablet 12/13/17 [Rx] levoFLOXacin [Levaquin] 500 mg PO DAILY 6 Days #6 tablet 12/13/17 [Rx] Allergies/Adverse Reactions: 3 Allergy/AdvReac Type Severity Reaction Status Date / Time diazepam [From Valium] AdvReac Muscle Pain Verified 11/30/17 13:50 Certification: Further, I certify that my clinical findings support that this patient is homebound (i.e. absences from home require considerable and taxing effort and are for medical reasons or [employer] services or infrequently or short duration when for other reasons) because: Homebound Reason: Patient requires assistance of a person or device to safely leave home, Post-surgery restriction and or conditions limit ability to leave home Attestation: My signature below is to certify that this patient is under my care and that I, or nurse practitioner, or a physician's administrative assistant front desk working with me, has a face-to -face encounter with this patient.
--- NOTE | 2017-12-22 11:09 | Discharge Summary ---
Date of Encounter: 12/22/17 Time of Encounter: 11:04 - Discharge Diagnosis (1) CAD (coronary artery disease) Priority: Secondary Status: Chronic Qualifiers: Coronary Disease-Associated Artery/Lesion type: [place] artery [place] vs. transplanted heart: [place] heart Associated angina: angina presence unspecified Qualified Code(s): I25.10 - Atherosclerotic heart disease of [place] coronary artery without angina pectoris (2) HTN (hypertension) Priority: Secondary Status: Chronic Qualifiers: Hypertension type: essential hypertension Qualified Code(s): I10 - Essential (primary) hypertension (3) S/P colectomy Priority: Primary Status: Acute (4) General weakness Priority: Secondary Status: Acute Hospital course: Ms. Ruelas is a 82 year old female Discharge discussed with: patient, family - Time Spent with Patient Total time spent providing and/or coordinating discharge services: Less than 30 minutes - Discharge Medications Home Medications: Cholecalciferol (Vitamin D3) [Vitamin D3] 1,000 unit PO DAILY 05/22/15 [History] Cinnamon Bark [Cinnamon] 1,000 mg PO DAILY 05/22/15 [History] Cyanocobalamin (Vitamin B-12) [Vitamin B-12] 100 mcg PO DAILY 05/22/15 [History] Flaxseed Oil 1,000 mg PO BID 05/22/15 [History] Garlic 2,000 mg PO DAILY 05/22/15 [History] Lisinopril [Zestril] 2.5 mg PO DAILY 05/22/15 [History] Levothyroxine [Synthroid] 25 mcg PO QAM 09/07/15 [History] Calcium Carbonate [Calcium] 1,200 mg PO BID 06/23/16 [History] Vitamin A Palmitate [Vitamin A] 10,000 unit PO DAILY 06/23/16 [History] Furosemide [Lasix] 20 mg PO BID #60 tablet 08/08/16 [Rx] Simvastatin [Zocor] 20 mg PO HS #90 tablet 09/21/16 [Rx] Clopidogrel Bisulfate [Plavix] 75 mg PO DAILY #30 tablet 03/16/17 [Rx] Digoxin [Lanoxin] 0.125 mg PO DAILY #30 tablet 03/16/17 [Rx] Omeprazole [PriLOSEC] 40 mg PO BIDAC #30 capsule. 10/30/17 [Rx] Metoprolol Succinate [Toprol Xl] 100 mg PO DAILY 11/30/17 [History] Docusate [Colace] 100 mg PO BID PRN #30 capsule 12/13/17 [Rx] Ibuprofen [Motrin] 600 mg PO Q8HR PRN #30 tab 12/13/17 [Rx] OxyCODONE/APAP 10/325 [Percocet 10/325 MG] 1 each PO Q6HR PRN 6 Days #24 tablet 12/13/17 [Rx] levoFLOXacin [Levaquin] 500 mg PO DAILY 6 Days #6 tablet 12/13/17 [Rx] Nystatin POWDER [Nystop] 1 appl TP BID #1 bottle 12/22/17 [Rx] Allergies/Adverse Reactions: 3 Allergy/AdvReac Type Severity Reaction Status Date / Time diazepam [From Valium] AdvReac Muscle Pain Verified 11/30/17 13:50 Date of admission: 12/15/17 12:53 Primary care physician: Chiquis Suárez, Consults: 12/15/17 13:36 Consult to Occupational Therapy [CONS] Routine Comment: eval Reason for Consult: eval Does patient have active BEDREST order?: No Is patient medically & hemodynamically stable?: Yes Consult to Physical Therapy [CONS] Routine Comment: eval Reason for Consult: eval Does patient have active BEDREST order?: No Is patient medically & hemodynamically stable?: Yes Consult to Stencil Cutter [CONS] Routine Reason for SW Consult: d/c planning Discharging clinician: Carlotta Fowler Anticipated date of discharge: 12/22/17 - Constitutional Vitals: Temp Pulse Resp BP Pulse Ox 98.2 F 98 18 108/71 93 12/22/17 07:16 12/22/17 07:16 12/22/17 07:16 12/22/17 07:16 12/22/17 07:16 General appearance: Present: A&O X 3, pleasant, no acute distress, answers questions appropriately - Head Head exam: Present: atraumatic, normocephalic - Eye Eye exam: Present: PERRL, conjuntiva pink, sclera anicteric Pupils: Present: PERRL - Neck Neck exam general surgery: Present: supple, trachea midline. Absent: lymphadenopathy - Respiratory Respiratory exam: Present: CTAB. Absent: accessory muscle use, rales, rhonchi, wheezes - Cardiovascular Cardiovascular exam: Present: RRR, +S1, +S2. Absent: diastolic murmur, gallop, rubs, systolic murmur - GI/Abdominal GI/Abdominal exam: Present: normal bowel sounds, soft, no peritoneal signs. Absent: distended, tenderness - Extremities Exam Extremities exam: Present: warm, radial pulses palpable and symmetrical. Absent : calf tenderness, cyanotic, pedal edema - Neurological Exam Neurological exam: Present: CN II-XII intact, oriented X3, no focal deficits. Absent: pronater drift, facial droop, speech deficit - Skin Skin exam: Present: dry, intact Additional comments: healing abdominal incision scars. colostomy with pink moist stoma. - Patient Status Disposition: Home Health Service Condition: Good Functional capacity at discharge: uses cane/walker Overall status at discharge: patient is progressing back to baseline - Discharge Instructions Follow Up With: Chiquis Suárez MD [Primary Care Provider] - - Diet and Activity Activity: as per physical therapy Diet: advance to your usual diet - VTE Documentation of Mechanical Device: Graduated compression elastic hosiery
== END 2017-12-22 12:00 | disposition home health service (06) | DRG 949 ==
LOC: INPGRE 12:53